=== PATIENT | male | born 1990 | race Caucasian/White ===

== ENCOUNTER → 2023-01-08 | Outpatient (CLI) | payer OTHER, SELFPAY ==
--- NOTE | 2023-01-08 10:00 | MRI_ITS ---
STUDY: MRI CERVICAL SPINE WITHOUT CONTRAST REASON FOR EXAM: Male, 32 years old. pain from base of skull to mid back TECHNIQUE: Standardized fat and water weighted pulse sequences were obtained in the sagittal and axial planes. COMPARISON: None FINDINGS: Normal foramen magnum and brainstem-cervical cord junction. Normal craniovertebral junction. Normal anterior atlantoaxial articulation. Normal odontoid process. Normal cervical lordosis. Normal vertebral bodies and posterior osseous elements. C2-3: Normal endplates. Normal disc height, signal and tiny central disc protrusion.. Normal central canal and intervertebral neural foramina. C3-4: Normal endplates. Normal disc height, signal and mild bulging of the disc.. Normal central canal. Mild to moderate bilateral neural foraminal stenosis secondary to bony hypertrophy. C4-5: Normal endplates. Normal disc height, signal and minor bulging of the disc.. Normal central canal. Moderate bilateral neural foraminal encroachment secondary to bony hypertrophy. C5-6: Normal endplates. Normal disc height, signal and mild bulging disc osteophyte complex.. Minor narrowing the central canal. Severe right neural foraminal stenosis secondary to bony hypertrophy and mild encroachment on the left C6-7: Normal endplates. Normal disc height signal and morphology. Normal central canal and intervertebral neural foramina. C7-T1: Normal endplates. Normal disc height, signal and morphology. Normal central canal and intervertebral neural foramina. Normal cervical cord. Normal visualized soft tissue structures. MRI/Spine Cervical (Routine) IMPRESSION: No evidence for acute fracture or other significant bone pathology. Mild multilevel spinal stenosis secondary to disc disease and bony hypertrophy Findings as above Electronically Signed: Jack Garcia MD at 17:11 EDT Reading Location ID and State: [facility] / [place] Tel , Service support ,
== END | disposition home or self-care (01) ==
LOC: MRI 09:59
PROVIDERS: PCP Student in an Organized Health Care Education/Training Program; Referring Provider Orthopaedic Surgery; Visit Provider Orthopaedic Surgery
DX: M50.30 Other cervical disc degeneration, unspecified cervical region (principal)
CPT/HCPCS: 72141

== ENCOUNTER → 2023-02-18 | Outpatient (CLI) | payer OTHER, SELFPAY ==
[2023-02-18 08:03] LABS: Hematocrit 43.3 % (40-54); Hemoglobin 14.6 g/dL (13.0-16.5)
[2023-02-19 06:40] LABS: ALB/GLOB Ratio 1.2 RATIO (0.9-2.4); AST(SGOT) 24 U/L (15-37); Alanine Aminotransfer ALT/SGPT 48 U/L (16-61); Albumin, Serum 4.1 g/dL (3.2-5.0); Alkaline Phosphatase 63 U/L (45-117); Anion Gap 9 (5-15); BUN 20 mg/dL (7-18); BUN/Creat Ratio 16.9 RATIO (10-20); Calcium,Total 9.2 mg/dL (8.5-10.1); Chloride 106 mmol/L (98-107); Cholesterol 189 mg/dL (200); Creatinine, Serum 1.18 mg/dL (0.70-1.30); EST Glomerular Filtration Rate 77 mL/min (>60); Est Glom Filt Rate - Afr Amer 93 mL/min (>60); Estradiol 15.1 pg/mL; Follicle Stimulating Hormone 2.3 mIU/mL; Globulin 3.4 g/dL (2.2-4.2); Glucose 129 mg/dL (74-106); High Density Lipoprotein 41 mg/dL; Luteinizing Hormone 1.6 mIU/mL; PSA,Total - Annual Screen 0.39 ng/mL (0.00-4.00); Protein, Total 7.5 g/dL (6.4-8.2); Sodium Level 140 mmol/L (136-145); Thyroid Stim Hormone (TSH) 1.89 uIU/mL (0.358-3.74); Triglycerides 409 mg/dL
[2023-02-23 14:09] LABS: Sex Hormone-binding Globulin 24.3 nmol/L (16.5-55.9); Testosterone, % Free 2.98 % (1.50-4.20); Testosterone, Free 6.68 ng/dL (5.00-21.00); Testosterone, Total 224 ng/dL (264-916)
== END | disposition home or self-care (01) ==
LOC: LAB 07:32
PROVIDERS: PCP Nurse Practitioner Adult Health; Referring Provider Registered Nurse; Visit Provider Registered Nurse
DX: E29.1 Testicular hypofunction (principal); R53.83 Other fatigue; Z12.5 Encounter for screening for malignant neoplasm of prostate; R68.82 Decreased libido; R63.5 Abnormal weight gain; R35.0 Frequency of micturition; R39.16 Straining to void
CPT/HCPCS: 36415; 80053; 80061; 82627; 82670; 83001; 83002; 84146; 84153; 84270; 84402; 84403; 84443; 85014; 85018; 82626; G0103

== ENCOUNTER → 2023-06-16 | Outpatient (CLI) | payer OTHER, SELFPAY ==
[2023-06-16 13:50] LABS: Hematocrit 45.5 % (40-54); Hemoglobin 15.3 g/dL (13.0-16.5)
[2023-06-16 14:18] LABS: ALB/GLOB Ratio 1.1 RATIO (0.9-2.4); AST(SGOT) 25 U/L (15-37); Alanine Aminotransfer ALT/SGPT 49 U/L (16-61); Alkaline Phosphatase 56 U/L (45-117); Anion Gap 4 (5-15); BUN 19 mg/dL (7-18); BUN/Creat Ratio 16.2 RATIO (10-20); Calcium,Total 9.7 mg/dL (8.5-10.1); Chloride 108 mmol/L (98-107); Cholesterol 181 mg/dL (200); Creatinine, Serum 1.17 mg/dL (0.70-1.30); EST Glomerular Filtration Rate 77 mL/min (>60); Est Glom Filt Rate - Afr Amer 93 mL/min (>60); Estradiol 42.5 pg/mL; Follicle Stimulating Hormone < 0.2 mIU/mL; Globulin 3.6 g/dL (2.2-4.2); Glucose 94 mg/dL (74-106); High Density Lipoprotein 41 mg/dL; Luteinizing Hormone < 0.2 mIU/mL; Potassium 4.1 mmol/L (3.5-5.1); Prolactin 3.7 ng/mL; Protein, Total 7.6 g/dL (6.4-8.2); Sodium Level 139 mmol/L (136-145); Triglycerides 94 mg/dL; Very Low Density Lipoprotein 19 mg/dL (5-40)
--- OUTSIDE RECORDS SUMMARY | 2023-06-16 18:52 | XMS RPT_ITS | CCD ---
Author Name Unknown Address [address] [place] [address] Organization [facility] Care Team Providers Care [place] [employer] Wheeler Name Role Phone MAST SENIOR PAINTER-DISASTER RESPONSE DIRECTOR, JETHRO Primary Care Physician [phone] MILES BRANNON, JETHRO Attending Unavailabl e MAST SENIOR PAINTER-DISASTER RESPONSE DIRECTOR, JETHRO Primary Care Unavailabl e MAST SENIOR PAINTER-DISASTER RESPONSE DIRECTOR, JETHRO Primary Care Unavailabl e CHANCE FONTANA MD Attending Unavail able Medications Current Medications Medication Drug Class(es) Dates Sig (Normalized) Sig (Original) predniSONE 50 mg oral tablet (1 source) Start: 03-14-2023 End: 03-19-2023 predniSONE 50 mg oral tablet Dose : 50 mg = 1 tab(s), Oral, qDay, Take with food, X 5 day(s), # 5 tab(s), 0 Refill(s), 03/19/23 12:00:00 AM EST Start Date: 03/14/23 Stop Date: 03/19/23 Status: Ordered Problems Problem Classification Problem Date Documented Da te Episodic/Chronic Allergic reactions (1 source) Allergic disposition; Translations: [Allergy, unspecified, initial encounter] Onset: 03-13-2023 Episodic Anxiety disorders (1 source) Anxiety 01-31-2023 Chronic Coma; stupor; and brain damage (1 source) Daytime somnolence 01-31-2023 Episodic Other lower respiratory disease (1 source) Snoring 01-31-2023 Episodic Other nervous system disorders (1 source) 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 Spondylosis; intervertebral disc disorders; other back problems (1 source) Cervical spondylosis 01-31-2023 Chronic Unclassified (1 source) PCL-5 - post-traumatic stress disorder checklist for DSM-5 (Diagnostic and Statistical Manual of Mental Disorders - Fifth edition) 01-31-2023 Vital Signs Date Time Vital Sign Value Performing Clinician Sachi swanson 03-13-2023 06:46-0500 Body temperature 98.78 [degF] CHANCE FONTANA MD [facility] 03-13-2023 06:46-0500 Diastolic Blood Pressure Non-Invasive 85 1 CHANCE FONTANA MD [facility] 03-13-2023 06:46-0500 Heart rate 71 /min CHANCE FONTANA MD [facility] 03-13-2023 06:46-0500 Respiratory rate 18 /min CHANCE FONTANA MD [facility] 03-13-2023 06:46-0500 Systolic Blood Pressure Non-Invasive 136 1 CHANCE FONTANA MD [facility] Encounters Encounter Date Encounter Type Care Provider Facility Start: 03-13-2023 End: 03-13-2023 Emergency department patient visit JETHRO MAST SENIOR PAINTER-DISASTER RESPONSE DIRECTOR Facility:B Start: 03-13-2023 End: 03-13-2023 Emergency department patient visit CHANCE FONTANA MD [facility] Start: 03-02-2023 ambulatory JETHRO MAST SENIOR PAINTER-DISASTER RESPONSE DIRECTOR Fa cility:A Procedures Date Procedure Procedure Detail Performing Clinician Vasectomy CHANCE JACQUES MD Payers Date Payer Category Payer Private Health Insurance [id number] 1990 Unknown [id number] 1990 Unknown [id number] Social History Date Type Detail Facility Tobacco Nicotine Use: ch ews. Type: Oral (Snuff, Chew). [facility] Tobacco smoking status No Smoking Status Entered [facility] Sex Assigned At Male [facility] Functional Status Date Assessment Result Facility 03-13-2023 Functional Status Standard Safet y ID band on, Call device within reach, Bed in low position, Wheels locked, Upper/Half-Length side-rails up, Phone within reach, Safety level maintained [facility] Mental Status Date Assessment Result Facility 03-13-2023 Mental Status Orientation Oriented x 4 [facility] Discharge instructions 03-13-2023 Note Date & Type Note Facility 03-13-2023 Hospital Discharg e instructions Patient Education 03/13/2023 09:03:39 Allergic Reaction, Drug Medicine Reaction: Allergic You are having an allergic reaction to a medicine you have taken. This may cause an itchy rash and sometimes swelling of various parts of the body. It could also cause trouble swallowing or breathing. The rash may take a few hours or up to 2 weeks to go away. In the future, remember to tell your healthcare provider about your allergy to this medicine so that medicines of this type won't be used again. Any medicine can cause an allergic reaction. But the most allergic reactions are caused by: Penicillin and related medicines Aspirin Ibuprofen Seizure medicines Vaccines may also trigger allergies. People whose parents or siblings have allergies are at a higher risk of developing a medicine allergy. Allergy testing may sometimes be needed to figure out the cause. Symptoms may occur within minutes, hours, or even weeks after exposure to the medicine. It can be a mild or severe reaction, or potentially life threatening. Most of us think of allergic reactions when we have a rash or itchy skin. Symptoms can include: Rash, hives, redness, welts, blisters Itching, burning, stinging, pain Dry, flaky, cracking, scaly skin Belly (abdominal) cramps or nausea or stomach pain Fever. Sometimes fever is the only symptom of a drug reaction. In older adults, the risk of fever increases with the number of medicines the person takes. More severe symptoms include: Swelling of the face or lips, or drooling Trouble swallowing, feeling like your throat is closing Trouble breathing, wheezing Hoarse voice or trouble speaking Severe nausea or vomiting or diarrhea Feeling faint or lightheaded, rapid heart rate Blistering of the skin, or ulcers in the mouth or on the genitals Home care The goal of treatment is to help relieve the symptoms, and get you feeling better. Mild to medium medicine reactions usually respond quickly to antihistamines, steroids, and stopping the medicine. The rash will usually fade over several days. But it can sometimes last a couple of weeks. Over the next couple of days, there may be times when it is gets a little worse, and then better again. Here are some things to do: Throw the medicine away and don t take it again. The next reaction could be the same or worse. Call your health care provider to discuss adding this medicine allergy reaction to your electronic medical record. When getting a new medicine, always tell the healthcare provider that you are allergic to this medicine. Make certain the provider writes it down in your medical record. Avoid tight clothing and anything that heats up your skin (hot showers or baths, direct sunlight). Heat will make itching worse. An ice pack will relieve local areas of intense itching and redness. To make an ice pack, put ice cubes in a plastic bag that seals at the top. Wrap the bag in a clean, thin towel or cloth. Don t put ice directly on the skin. To help prevent an infection, don't scratch the affected area. Scratching may worsen the reaction. It can damage your skin and lead to an infection. Always check the affected site for signs of an infection. Your provider may give you a prescription antihistamine. If you are not given a prescription antihistamine, oral diphenhydramine is an ubxs-wjw-mzpjlkp antihistamine available at pharmacies and grocery stores. This may be used to reduce itching if large areas of the skin are involved. This antihistamine may make you sleepy, so be careful using it in the daytime or when going to school, working, or driving. Note: Don t use diphenhydramine if you have glaucoma or if you are a man with trouble urinating due to an enlarged prostate. There are other antihistamines that cause less drowsiness and are a good choice for daytime use. Ask your pharmacist or health care provider for suggestions. Don't use diphenhydramine cream on your skin. It can cause a further skin reaction for some people. Contact your healthcare provider and ask what can be used on the affected area to help decrease the itching. Follow-up care Follow up with your healthcare provider, or as advised if your symptoms do not continue to improve or they get worse. Call 911 Call 911 if any of these occur: Shortness of breath Cool, moist, pale skin Swelling in the face, eyelids, mouth, tongue, or lips Drooling Trouble breathing or swallowing, wheezing New or worsening swelling in the mouth, throat, or tongue Hoarse voice or trouble speaking Fainting or loss of consciousness Rapid heart rate Feeling of dizziness or weakness or a sudden drop in blood pressure Feeling of doom Feeling lightheaded Severe nausea, vomiting, or diarrhea When to seek medical advice Call your healthcare provider right away if any of these occur: Continuing or recurring symptoms Nausea, abdominal cramps or stomach pain Spreading areas of itching, redness or swelling Blistering of the skin or sores or ulcers in the mouth or on the genitals Signs of infection: oSpreading redness oIncreased pain or swelling oFever of 100.4 F (38 C) or above lasting for 24 to 48 hours, or as directed by your provider oFluid or colored drainage from the affected area 9631-4759 [employer]. [address] [place] [address]. All rights reserved. This information is not intended as a substitute for professional medical care. Always follow your healthcare professional's instructions. Follow Up Care 03/13/2023 06:34:21 With:JETHRO AQUINO APRN-DISASTER RESPONSE DIRECTOR Address: [address] [facility] [place] [phone] When:2-4 days [facility] Emergency department Discharge summary 03-13-2023 Note Date & Type Note Facility 03-13-2023 Emergency department Discharge summary Discharge Instructions Thank you for allowing [facility] to assist you with your healthcare needs. The following is important discharge information regarding your hospital visit. Diagnosis from Today's Visit Allergic reaction Tongue swelling What to Do Next Instructions from Your Care Team No qualifying data available. Post Acute Orders No qualifying data available. You Need to Schedule the Following Appointments Follow Up with JETHRO AQUINO When Within 2-4 days Where: [address] [facility] [place] [address]- [phone] Allergies NKA Medications Please ask your primary doctor or pharmacist before taking any other medication not listed, including over the counter drugs, herbal medications, vitamins and or supplements as they may interact with your home medications. Please take this list to your next doctor s visit. Bring all medications you take, including over the counter medications, herbals and other supplements with you to your doctor s visit. Patients and families are reminded to discard old lists and to update any records with all medication providers or retail pharmacies. Education Materials Medicine Reaction: Allergic You are having an allergic reaction to a medicine you have taken. This may cause an itchy rash and sometimes swelling of various parts of the body. It could also cause trouble swallowing or breathing. The rash may take a few hours or up to 2 weeks to go away. In the future, remember to tell your healthcare provider about your allergy to this medicine so that medicines of this type won't be used again. Any medicine can cause an allergic reaction. But the most allergic reactions are caused by: Penicillin and related medicines Aspirin Ibuprofen Seizure medicines Vaccines may also trigger allergies. People whose parents or siblings have allergies are at a higher risk of developing a medicine allergy. Allergy testing may sometimes be needed to figure out the cause. Symptoms may occur within minutes, hours, or even weeks after exposure to the medicine. It can be a mild or severe reaction, or potentially life threatening. Most of us think of allergic reactions when we have a rash or itchy skin. Symptoms can include: Rash, hives, redness, welts, blisters Itching, burning, stinging, pain Dry, flaky, cracking, scaly skin Belly (abdominal) cramps or nausea or stomach pain Fever. Sometimes fever is the only symptom of a drug reaction. In older adults, the risk of fever increases with the number of medicines the person takes. More severe symptoms include: Swelling of the face or lips, or drooling Trouble swallowing, feeling like your throat is closing Trouble breathing, wheezing Hoarse voice or trouble speaking Severe nausea or vomiting or diarrhea Feeling faint or lightheaded, rapid heart rate Blistering of the skin, or ulcers in the mouth or on the genitals Home care The goal of treatment is to help relieve the symptoms, and get you feeling better. Mild to medium medicine reactions usually respond quickly to antihistamines, steroids, and stopping the medicine. The rash will usually fade over several days. But it can sometimes last a couple of weeks. Over the next couple of days, there may be times when it is gets a little worse, and then better again. Here are some things to do: Throw the medicine away and don t take it again. The next reaction could be the same or worse. Call your health care provider to discuss adding this medicine allergy reaction to your electronic medical record. When getting a new medicine, always tell the healthcare provider that you are allergic to this medicine. Make certain the provider writes it down in your medical record. Avoid tight clothing and anything that heats up your skin (hot showers or baths, direct sunlight). Heat will make itching worse. An ice pack will relieve local areas of intense itching and redness. To make an ice pack, put ice cubes in a plastic bag that seals at the top. Wrap the bag in a clean, thin towel or cloth. Don t put ice directly on the skin. To help prevent an infection, don't scratch the affected area. Scratching may worsen the reaction. It can damage your skin and lead to an infection. Always check the affected site for signs of an infection. Your provider may give you a prescription antihistamine. If you are not given a prescription antihistamine, oral diphenhydramine is an baaa-qkd-wweradq antihistamine available at pharmacies and grocery stores. This may be used to reduce itching if large areas of the skin are involved. This antihistamine may make you sleepy, so be careful using it in the daytime or when going to school, working, or driving. Note: Don t use diphenhydramine if you have glaucoma or if you are a man with trouble urinating due to an enlarged prostate. There are other antihistamines that cause less drowsiness and are a good choice for daytime use. Ask your pharmacist or health care provider for suggestions. Don't use diphenhydramine cream on your skin. It can cause a further skin reaction for some people. Contact your healthcare provider and ask what can be used on the affected area to help decrease the itching. Follow-up care Follow up with your healthcare provider, or as advised if your symptoms do not continue to improve or they get worse. Call 911 Call 911 if any of these occur: Shortness of breath Cool, moist, pale skin Swelling in the face, eyelids, mouth, tongue, or lips Drooling Trouble breathing or swallowing, wheezing New or worsening swelling in the mouth, throat, or tongue Hoarse voice or trouble speaking Fainting or loss of consciousness Rapid heart rate Feeling of dizziness or weakness or a sudden drop in blood pressure Feeling of doom Feeling lightheaded Severe nausea, vomiting, or diarrhea When to seek medical advice Call your healthcare provider right away if any of these occur: Continuing or recurring symptoms Nausea, abdominal cramps or stomach pain Spreading areas of itching, redness or swelling Blistering of the skin or sores or ulcers in the mouth or on the genitals Signs of infection: oSpreading redness oIncreased pain or swelling oFever of 100.4 F (38 C) or above lasting for 24 to 48 hours, or as directed by your provider oFluid or colored drainage from the affected area [id number] [employer]. [address] [place] [address]. All rights reserved. This information is not intended as a substitute for professional medical care. Always follow your healthcare professional's instructions. Additional Information VACCINATE! IT SAVES LIVES! Members of the community who have not yet received the COVID-19 vaccine and would like to receive it can visit one of [facility] vaccine clinics. There are many vaccine clinic locations within the [facility]. For locations and available times, please visit www.gettheshot.coronavirus.[place].g ov/. It is important to note that some COVID mobile vaccine clinics are held outdoors and may be canceled in rainy or stormy conditions. To learn more about pediatric vaccinations (ages 5-11), we invite you to visit the [facility] webpage. https://www.[facility].org/pa ges/7017-Fxomc-Zfkmusnkupi-Freque aadd-Ikxzh-Sfrsqnwfr.html To learn more about the COVID-19 vaccine, we invite you to visit the CDC website for a list of frequently asked questions. https://www.cdc.gov/coronavirus/2 019-ncov/vaccines/faq.html [facility] Patient Portal Access Instructions: Stay connected with your healthcare team and access your personal medical information anytime with the [email or web address] Patient Portal. If you would like a full copy of your medical records please contact the [facility] Medical Records Department Tuesday through Tuesday between 8a.m. and 4:30p.m. Please follow the directions below to access the portal: 1.Access the email account you provided upon registration to the [facility].2.Look for an invitation email from [facility].3.Open the email and access the invitation link: Accept Invitation to [facility]4.Fill in the required ceballos to create your account. Sign into www.[employer] with your username and password that you created in the above steps to stay up to date. You can then view a summary of results, a summary of your visits, and the ability to download your summaries to your computer or send the information securely to a physician. Remember that your healthcare information is confidential, so carefully consider who you will allow to register on the [email or web address] Patient Portal for access to your information. You can also access the [email or web address] Patient Portal on the [employer]y. Simply click on Health Records under Health Data and then click on the [employer]op[employer] logo. HOW TO SAFELY DISPOSE OF PRESCRIPTION MEDICATIONS Please use one of the following methods to safely dispose of your unused medications. 1.Use a drug disposal kit: the drug disposal pouch allows you to safely discard your old and unused drugs. Ask your nurse to give you one when you are discharged.2.Visit a local take-back location: Many local pharmacies and police departments have programs that collect old and unwanted prescription drugs. Call your local pharmacy or go to http://bit.YOOSE/6A4Uu8d to find one close to you.3.Make use of household items: Use cat litter or old coffee grounds to dispose medications if other options are not available. Mix your drugs with these household products, seal them in an airtight container and throw it into the garbage. Call [facility]: [phone] to be sure your drugs can be disposed of in this way. Some medicines may require a different approach.4.Never flush your medications down the toilet. IF YOU HAVE BEEN PRESCRIBED AN OPIOIDS FOR PAIN If you have been prescribed an opioid (such as hydrocodone, oxycodone or morphine), it is critical to understand the possible side effects and risks of opioid pain medications. Even when taken as directed, opioids can have several side effects including: Tolerance, meaning you might need to take more of a medication for the same pain relief. Nausea, vomiting and/or constipation. Sleepiness, dizziness, dry mouth, confusion, depression or itching. Physical dependence, meaning you have withdrawal symptoms when a medication is stopped ? this can develop within a few days. KNOW YOUR RESPONSIBILITIES It is important to know exactly how much and how often to take the opioid pain medications you are prescribed. Never take opioids in higher amounts or more often than prescribed. Do not combine opioids with alcohol or other drugs that cause drowsiness, such as benzodiazepines, also known as benzos, including diazepam and alprazolam, muscle relaxants or sleep aids. Never sell or share prescription opioids. This is illegal. Store opioids in a secure place and out of reach of others (including children, family, friends and visitors). The last page(s) of this document has been signed and retained as a CHART COPY Signatures Patient Education Materials Allergic Reaction, Drug Medication Leaflets My discharge plan and instructions have been reviewed and explained to me and I,SPRING CASTRO understand my current condition and have read and understand these discharge instructions. I have received a written copy of the plan/instructions. If I have questions, I am aware that I should contact my doctor. Patient/Learning Center Coordinator Signature: Date/Time: Relationship to Patient: ____ Witness Name/Signature: Date/Time: [facility] Evaluation + Plan note Note Date & Type Note Facility Evaluation + Plan note No data available for this section [facility] Summary Purpose Family History No Family History Records Found Advance Directives No Advanced Directives Records Found Additional Source Comments Patient Care team informatio n (unrecognized section and content) Care Team Personnel Name: JETHRO AQUINO KAREN-ELLIOTT Position: P4 Advanced Poultry Inseminator Member Role: Primary Care Physician Address: Address: [address] [facility] [address] Care Team Related Persons Name: CONSTANZA CASTRO Address: Home [address] [place], [place] [id number] (unrecognized sect ion and content) No Status Records Found INFORMATION SOURCE (unrecogn ized section and content) FOR RECORDS PERTAINING TO PATIENTS WHO ARE OR HAVE BEEN ENROLLED IN A CHEMICAL DEPENDENCY/SUBSTANCEABUSE PROGRAM, SOME INFORMATION MAY BE OMITTED. This clinical summary was aggregated from multiple sources. Caution should be exercised in using it in the provision of clinical care. This summary normalizes information from multiple sources, and as a consequence, information in this document may materially change the coding, format and clinical context of patient data. In addition, data may be omitted in some cases. CLINICAL DECISIONS SHOULD BE BASED ON THE PRIMARY CLINICAL RECORDS. [facility] [employer] provides no warranty or guarantee of the accuracy or completeness of information in this document.
[2023-06-27 14:08] LABS: Sex Hormone-binding Globulin 20.1 nmol/L (16.5-55.9); Testosterone, % Free 4.54 % (1.50-4.20); Testosterone, Free > 68.10 ng/dL (5.00-21.00); Testosterone, Total > 1500 ng/dL (264-916)
== END | disposition home or self-care (01) ==
LOC: LAB 12:37
PROVIDERS: PCP Nurse Practitioner Adult Health; Referring Provider Registered Nurse; Visit Provider Registered Nurse
DX: Z12.5 Encounter for screening for malignant neoplasm of prostate (principal); R53.83 Other fatigue; E29.1 Testicular hypofunction; R68.82 Decreased libido; R63.5 Abnormal weight gain; R35.0 Frequency of micturition; R39.16 Straining to void
CPT/HCPCS: 36415; 80053; 80061; 82627; 82670; 83001; 83002; 84146; 84270; 84402; 84403; 84443; 85014; 85018; 82626

== ENCOUNTER → 2024-01-04 | Outpatient (CLI) | payer OTHER, SELFPAY ==
[2024-01-04 12:57] LABS: Hematocrit 43.5 % (40-54); Hemoglobin 14.8 g/dL (13.0-16.5)
[2024-01-04 13:08] LABS: ALB/GLOB Ratio 1.1 RATIO (0.9-2.4); AST(SGOT) 26 U/L (15-37); Alanine Aminotransfer ALT/SGPT 46 U/L (16-61); Albumin, Serum 3.8 g/dL (3.2-5.0); Alkaline Phosphatase 58 U/L (45-117); Anion Gap 4 (5-15); BUN 18 mg/dL (7-18); BUN/Creat Ratio 18.3 RATIO (10-20); Calcium,Total 9.8 mg/dL (8.5-10.1); Chloride 107 mmol/L (98-107); Cholesterol 179 mg/dL (200); Creatinine, Serum 0.98 mg/dL (0.70-1.30); EST Glomerular Filtration Rate 94 mL/min (>60); Est Glom Filt Rate - Afr Amer 113 mL/min (>60); Globulin 3.4 g/dL (2.2-4.2); Glucose 103 mg/dL (74-106); High Density Lipoprotein 40 mg/dL; PSA,Total- Diagnostic 0.38 ng/mL (0.0-4.0); Potassium 4.3 mmol/L (3.5-5.1); Protein, Total 7.2 g/dL (6.4-8.2); Sodium Level 139 mmol/L (136-145); Triglycerides 344 mg/dL; Very Low Density Lipoprotein 69 mg/dL (5-40)
[2024-01-05 09:51] LABS: Estradiol 14.6 pg/mL
[2024-01-12 15:08] LABS: Sex Hormone-binding Globulin 28.5 nmol/L (16.5-55.9); Testosterone, Free 11.65 ng/dL (5.00-21.00); Testosterone, Total 364 ng/dL (264-916)
== END | disposition home or self-care (01) ==
PROVIDERS: PCP Nurse Practitioner Adult Health; Referring Provider Registered Nurse; Visit Provider Registered Nurse
DX: R53.83 Other fatigue (principal); R68.82 Decreased libido; R35.0 Frequency of micturition; E78.9 Disorder of lipoprotein metabolism, unspecified
CPT/HCPCS: 36415; 80053; 80061; 82670; 84153; 84270; 84402; 84403; 85014; 85018

== ENCOUNTER 2024-04-17 17:22 | Emergency (ER) | payer OTHER, SELFPAY ==
[2024-04-17 17:22] VITALS: BP 138/95; PULSE 106; RESP 20; TEMP 36.6; O2SAT 99; BMI 35.2
[2024-04-17] MEDS: 0.9% Normal Saline (1000mL) 1,000 ML 1000 ML IV (18:43)
[2024-04-17] MEDS: Ondansetron 4 MG/2 ML Vial IV (18:43)
[2024-04-17 19:01] LABS: Absolute Lymphocyte Count 0.74 X10^3/uL (0.83-4.51); Absolute Neutrophil Count 4.8 X10^3/uL (2.0-7.7); Basophil# 0.01 X10^3/uL; Basophil% 0.2 % (0-1); Eosinophil# 0.05 X10^3/uL; Eosinophils% 0.8 % (0-5); Hematocrit 44.5 % (40-54); Lymphocyte # 0.74 X10^3/ul (0.83-4.51); Lymphocyte % 11.8 % (19-41); Mean Corp Hgb Conc 33.7 g/dL (32-36); Mean Corpuscular Hgb 29.2 pg (27.0-32.0); Mean Corpuscular Volume 86.6 fL (80-94); Mean Platelet Vol. 10.8 fl (6.2-12.0); Monocyte# 0.71 X10^3/uL; Monocyte% 11.3 % (0-10); NRBC Flagged by Analyzer 0 % (0-5); Neutrophil # 4.76 X10^3/uL (2.7-7.7); Neutrophil % 75.6 % (47-70); Platelet Count 261 K/mm3 (150-450); RBC Distribution Width CV 13.2 % (11.6-14.6); RBC Distribution Width SD 41.8 fl (35.1-43.9); Red Blood Count 5.14 M/mm3 (4.6-6.2); White Blood Count 6.3 K/mm3 (4.4-11.0)
[2024-04-17 19:02] LABS: ALB/GLOB Ratio 1.1 RATIO (0.9-2.4); AST(SGOT) 19 U/L (15-37); Alanine Aminotransfer ALT/SGPT 28 U/L (16-61); Albumin, Serum 3.8 g/dL (3.2-5.0); Alkaline Phosphatase 52 U/L (45-117); Anion Gap 5 (5-15); BUN 26 mg/dL (7-18); BUN/Creat Ratio 20.3 RATIO (10-20); Calcium,Total 8.6 mg/dL (8.5-10.1); Chloride 106 mmol/L (98-107); Creatinine, Serum 1.28 mg/dL (0.70-1.30); EST Glomerular Filtration Rate 69 mL/min (>60); Est Glom Filt Rate - Afr Amer 84 mL/min (>60); Estimated Creatinine Clearance 106.66 ml/min; Globulin 3.4 g/dL (2.2-4.2); Glucose 110 mg/dL (74-106); Lipase 25 U/L (13-75); Potassium 3.6 mmol/L (3.5-5.1); Protein, Total 7.2 g/dL (6.4-8.2); Sodium Level 138 mmol/L (136-145)
--- NOTE | 2024-04-17 19:13 | EDS_ITS ---
HPI History of Present Illness Chief Complaint: General Illness Informant: patient Onset/Context/Timing Onset: Days (3) Context: Gradual Onset Timing: Continuous Quality: Cramping Location: Right upper abdomen Worsened by: Sitting upright Relieved by: Laying down Narrative Narrative: Patient presents with nausea and vomiting that has been getting worse over the last 3 days. Patient admits to some right upper quadrant abdominal pain. Patient describes his pain as cramping. Patient states it is constant. Patient states it is worse when he is sitting up and better when he is laying down. Patient admits to cough with some green and tabor sputum. Patient admits to a fever of 101 at home. Patient admits to some rhinorrhea. Patient denies any diarrhea, melena, or hematochezia. Patient denies any hematemesis or coffee- ground emesis. Patient denies any urinary complaints. PFSH PFS Medical History no medical history no medical history Home Medications ?Medication ?Instructions ?Recorded ?Last Taken ?Type anastrozole 1 mg tablet 1 mg PO QDAY 02/15/24 Unknown History clomiphene citrate 50 mg tablet 25 mg PO .2 x week 02/15/24 Unknown History testosterone cypionate 200 mg/mL 100 mg IM Q2W 02/15/24 Unknown History intramuscular kit Allergy/AdvReac Type Severity Reaction Status Date / Time No Known Allergies Allergy Verified 04/17/24 17:22 Surgical History History of tonsillectomy History of vasectomy Social History Smoking Status: Never smoker Smokeless tobacco user: chewing tobacco alcohol intake: current what type of physical activity do you participate in: other details: gym and cardio ROS ROS ED Constitutional Constitutional ED: Reports chills and fever(s) Eyes Eyes: Denies blurry vision or change in vision ENT ENT ED: Reports rhinorrhea; Denies sore throat Cardiovascular Cardiovascular: Denies chest pain or palpitations Respiratory/Chest Respiratory/Chest: Reports cough and sputum; Denies dyspnea Gastrointestinal Gastrointestinal: Reports abdominal pain, nausea and vomiting Genitourinary Genitourinary ED: Denies dysuria or hematuria Musculoskeletal Musculoskeletal: Reports back pain; Denies neck pain Integumentary Denies abscess or rash Neurologic Neurologic: Denies headache(s) or weakness Allergic/Immunologic Allergic/Immunologic ED: Denies mouth swelling or urticaria EXAM Physical Exam Const Vital Signs: 04/17/24 17:22 04/17/24 19:22 04/17/24 21:00 Temperature 98 F Temperature Source Oral Pulse Rate 106 H 86 83 Respiratory Rate 20 H Blood Pressure 138/95 H 120/78 132/78 H Blood Pressure Mean 109 92 96 Pulse Ox 99 96 96 Oxygen Delivery Method Room Air Room Air Positive well nourished and well developed General Appearance ED: well developed and NAD HEENT Reports moist mucous membranes Neck supple and no JVD Resp normal respiratory effort and clear to auscultation bilaterally Cardio regular rate and regular rhythm GI non-distended Palpation: soft and tender epigastric, RLQ, LUQ, RUQ and periumbilical Extremity normal to inspection General Extremety ED: Negative for edema or tenderness General Extremity: Negative for edema Neuro oriented x3, CN's II-XII intact bilaterally and no sensory deficits noted Sensorium / Orientation: alert Motor Exam: strength 5/5 throughout Psych mental status grossly normal MDM MDM MDM Narrative Medical decision making narrative: Differential diagnosis includes peptic ulcer disease, gastric ulcer, duodenal ulcer, cholecystitis, cholelithiasis, pancreatitis, colitis, and viral illness. CBC will be obtained to assess for leukocytosis and anemia. Comprehensive metabolic profile will be obtained to assess for hepatic function, renal function, and electrolyte abnormality. Lipase will be obtained to assess for pancreatitis. Lab Data Attestation: I reviewed the patient's lab results. Lab results narrative: CBC was reviewed and was within normal limits. Comprehensive metabolic profile was reviewed. BUN was slightly elevated at 26. Creatinine was normal at 1.28. Glucose was slightly elevated at 110. Total bilirubin was slightly elevated at 1.1. AST and ALT were within normal limits. Lipase was reviewed and was normal at 25. Labs: Laboratory Results - last 24 hr 04/17/24 18:00 WBC 6.3 RBC 5.14 Hgb 15.0 Hct 44.5 MCV 86.6 MCH 29.2 MCHC 33.7 RDW Std Deviation 41.8 RDW Coeff of [place] 13.2 Plt Count 261 MPV 10.8 Immature Gran % (Auto) 0.300 Neut % (Auto) 75.6 H Lymph % (Auto) 11.8 L [place] % (Auto) 11.3 H Eos % (Auto) 0.8 Baso % (Auto) 0.2 Absolute Neuts (auto) 4.8 Absolute Lymphs (auto) 0.74 L Nucleated RBC % 0 Sodium 138 Potassium 3.6 Chloride 106 Carbon Dioxide 27.0 Anion Gap 5 BUN 26 H Creatinine 1.28 Estim Creat Clear Calc 106.66 Est GFR (MDRD) Af Amer 84 Est GFR (MDRD) Non-Af 69 BUN/Creatinine Ratio 20.3 H Glucose 110 H Calcium 8.6 Total Bilirubin 1.10 H AST 19 ALT 28 Alkaline Phosphatase 52 Total Protein 7.2 Albumin 3.8 Globulin 3.4 Albumin/Globulin Ratio 1.1 Lipase 25 Radiography Diagnostic Testing: Clinical Impression(s) from Imaging Studies Gallbladder Ultrasound 04/17/24 20:12 IMPRESSION: Probable small hemangioma of the right hepatic lobe. This could be proven with dynamic contrast CT of the liver. Mildly dilated common bile duct. Correlate with liver function tests. No other definite acute or significant abnormality seen. Electronically Signed: Tevin Fernandez MD at 21:15 EST , Because of the mildly elevated total bilirubin, right upper quadrant ultrasound was obtained. There is a probable small hemangioma of the right hepatic lobe. There is a mildly dilated common bile duct at 7 mm. There is no other acute abnormality noted. There is no pericholecystic fluid. There is a negative sonographic Barber sign. There is no gallbladder wall thickening. This was interpreted by the radiologist and was also independently reviewed by myself. Treatment and Re-Evaluation :: Patient was given IV fluids, morphine, and Zofran. Patient was feeling somewhat better on reevaluation. Patient was advised of his findings. Patient was instructed to eat a bland diet. Patient was instructed to follow-up with his primary care physician in 5 to 7 days for further evaluation. Patient understood and was agreeable with the plan. All questions were answered. Discharge Plan Triage Chief Complaint: General Illness ED Provider: Gio Donnelly Dx/Rx/DC Orders Clinical Impression: Abdominal pain, Nausea and vomiting Instructions: ED Diet, [place] (Adult), ED Vomiting (Adult), ED Abdominal Pain Unkn Cause Male... Prescriptions: No Action testosterone cypionate 200 mg/mL kit 100 mg IM Q2W anastrozole 1 mg tablet 1 mg PO QDAY clomiphene citrate 50 mg tablet 25 mg PO .2 x week Primary Care Provider: JETHRO AQUINO Referrals: JETHRO AQUINO CRNP [Primary Care Provider] - 5-7 Days Print Language: Serbian Disposition Disposition: Home, Self Care
[2024-04-17 19:22] VITALS: BP 120/78; PULSE 86; O2SAT 96
[2024-04-17] MEDS: proMETHazine 25 MG/ML Syringe 6.25 MG IM (19:52)
--- NOTE | 2024-04-17 20:12 | US_ITS ---
STUDY: ABDOMINAL ULTRASOUND - RIGHT UPPER QUADRANT REASON FOR VISIT: Male, 34 years old PAIN TECHNIQUE: Ultrasound evaluation of the right upper quadrant was performed with real-time and static tabor-scale imaging. TECHNICAL QUALITY: Adequate. COMPARISON: None. FINDINGS: Liver: The liver measures 16.9 cm. There is normal echogenicity of the liver. The bile ducts are within normal limits. There is hepatic color flow. The direction of portal flow is hepatopetal. There is a 1 cm echogenic nodule of the right hepatic lobe most consistent with hemangioma. Gallbladder: Normal distended gallbladder. The gallbladder wall measures 2 mm. There is a negative sonographic Barber''s sign. There is no pericholecystic fluid. There are no gallstones. Common Bile Duct (C.B.D.): The common bile duct measures 7 mm. Pancreas: Normal size of the head, body of the pancreas. Tail of the pancreas is suboptimally seen. There is normal echogenicity of the pancreas. There is no demonstrated pancreatic mass or cyst. Right Kidney: Normal size of the right kidney. The right kidney measures 11.6 cm. Normal renal cortex. The right cortex measures 2.0 cm. There is no demonstrated renal mass or cyst. There is no right hydronephrosis. US/Gallbladder IMPRESSION: Probable small hemangioma of the right hepatic lobe. This could be proven with dynamic contrast CT of the liver. Mildly dilated common bile duct. Correlate with liver function tests. No other definite acute or significant abnormality seen. Electronically Signed: Tevin Fernandez MD at 21:15 EST ,
[2024-04-17 21:00] VITALS: BP 132/78; PULSE 83; O2SAT 96
[2024-04-17 21:51] VITALS: BP 132/78; PULSE 83; RESP 16; TEMP 37; O2SAT 96
== END 2024-04-17 21:52 | disposition home or self-care (01) ==
PROVIDERS: Emergency Provider Emergency Medicine; PCP Nurse Practitioner Adult Health; Visit Provider Emergency Medicine
DX: R10.9 Unspecified abdominal pain (principal); R11.2 Nausea with vomiting, unspecified; R50.9 Fever, unspecified; F17.220 Nicotine dependence, chewing tobacco, uncomplicated
CPT/HCPCS: 76705; 80053; 83690; 85025; 96361; 96372; 96374; 96375; 99282; A4216; J2405